=== PATIENT | female | born 1995 | race Caucasian/White ===

== ENCOUNTER 2020-01-16 21:35 | Emergency (ER) | payer OTHER ==
[2020-01-16 21:46] VITALS: BP 110/72; PULSE 83; TEMP 98.1; BMI 24.7
--- NOTE | 2020-01-16 22:46 | PDOC ---
Documentation entered by Geri Koroma SCRIBE, acting as scribe for Carlos Alberto Fregoso MD. Carlos Alberto Fregoso MD: This documentation has been prepared by the malissaibe, Geri Koroma SCRIBE, under my direction and personally reviewed by me in its entirety. I confirm that the documentation accurately reflects all work, treatment, procedures, and medical decision making performed by me. History of Present Illness - General Chief Complaint: Chest Pain Stated Complaint: CHEST PAIN History Source: Patient Exam Limitations: No Limitations - History of Present Illness Initial Comments: 01/16/20 21:58 The patient is a 25-year-old female who presents to the emergency department with chest tightness. The patient reports she finished a tennis match around 7:30 pm, following she had an acute onset of left-sided chest tightness. The patient reports she went home after the match, and she felt the pain worsened while lying down and while she was showering. The patient reports currently she feels chest discomfort at rest and a pleuritic chest pain to the left chest wall and reports pain to the neck and under her left armpit. Denies taking any medication for the pain. Denies prior similar pain. ALLERGIES: As per nursing notesPAST MEDICAL HISTORY: no significant history. Denies history of HTN. PAST SURGICAL HISTORY: no significant history FAMILY HISTORY: Denies family history of cardiac disease. SOCIAL HISTORY: Pt lives with family and is unemployed. +social use of alcohol. Denies the use of tobacco or recreational drugs. MEDICATIONS: reviewed PCP: Dr. Farris ([facility]). Review of system: General: No fevers or chills, no weakness, no weight loss HEENT: No change in vision. No sore throat. No ear pain CardioVascular: +left sided chest pain. No shortness of breath Respiratory:No cough, or wheezing. Gastrointestinal: no nausea, vomiting, diarrhea or constipation, No rectal bleeding Genitourinary: No dysuria, hematuria, or frequency Musculoskeletal: +pain under left armpit. +neck pain. No other joint or muscle pain or swelling Neurologic: No headache, vertigo, dizziness or loss of consciousness Psychiatric: nor depression Skin: No rashes or easy bruising Endocrine: no increased thirst or abnormal weight change Allergic: no skin or latex allergy All other systems reviewed and normal Physical exam: General: Well-nourished well-developed individual, no acute distress HEENT: Throat: Normal, tonsils normal, no erythema or exudate Neck: Supple, no meningeal signs, no lymphadenopathy Eyes :Pupils equal reactive and round, extraocular motion intact Chest: Nontender to palpation Cardiac: S1-S2 normal, regular rate and rhythm, no murmurs rubs or gallops Respiratory: Lungs clear to auscultation bilateral Extremities: Warm, dry, no cyanosis, clubbing, or edema Skin: No rashes Neuro: Alert and oriented x3, nonfocal exam, grossly intact, normal gait Psych: Normal mood and affect 01/16/20 22:44 Assessment and plan: This is a 25-year-old female who comes in complaining of left-sided chest pain after playing a vigorous game of tennis. Patient denies history of similar pain in the past. Patient otherwise had a normal exam and has no risk factors. Patient's EKG did show a RSR prime in V1 only most likely hereditary. However troponin was sent which was negative and patient discharged told to not resume physical activity until evaluated by a yarn winder. Past History - Medical History Allergies/Adverse Reactions: Allergies Allergy/AdvReac Type Severity Reaction Status Date / Time cat dander Allergy Mild Verified 01/16/20 21:37 *Physical Exam - Vital Signs Last Vital Signs Temp Pulse Resp BP Pulse Ox 98.1 F 83 18 110/72 99 01/16/20 21:40 01/16/20 21:40 01/16/20 21:40 01/16/20 21:40 01/16/20 21:40 ED Treatment Course - ADDITIONAL ORDERS Additional order review: Laboratory Results 01/16/20 22:20 Troponin I < 0.03 - Medications Given in the ED: ED Medications Discontinued Medications Generic Name Dose Route Start Last Admin Trade Name Freq PRN Reason Stop Dose Admin Ibuprofen 400 mg 01/16/20 23:04 01/16/20 23:06 Motrin - PO 01/16/20 23:05 400 mg ONCE ONE Administration Discharge - Discharge Information Problems reviewed: Yes Clinical Impression/Diagnosis: Atypical chest pain Condition: Stable Disposition: HOME - Admission No - Follow up/Referral Referrals: Michelle Farris MD [Primary Care Provider] - - Patient Discharge Instructions Patient Printed Discharge Instructions: DI for Atypical Chest Pain Additional Instructions: Tylenol or Motrin as needed for pain Make sure you follow-up with a yarn winder before resuming tennis or any strenuous physical activity. Return to the emergency department immediately with ANY new, persistent or worsening symptoms. Continue any medications as previously prescribed by your physician. You should follow up with your primary doctor as soon as possible regarding today's emergency department visit. . Please make sure your doctor reviews the results of your emergency evaluation. Thank you for coming to the Emergency Department today for your care. It was a pleasure to see you today. Please note that your evaluation is INCOMPLETE until you follow-up with your doctor. - Post Discharge Activity
[2020-01-16] MEDS ORDERED: IBUPROFEN 400 MG TABLET (FP) PO ONE ×2 (23:04→23:05)
--- NOTE | 2020-01-17 09:16 | EKG ---
Test Reason : Blood Pressure : / mmHG Vent. Rate : 062 BPM Atrial Rate : 062 BPM P-R Int : 142 ms QRS Dur : 090 ms QT Int : 394 ms P-R-T Axes : 060 085 052 degrees QTc Int : 399 ms NORMAL SINUS RHYTHM WITH SINUS ARRHYTHMIA RSR' OR QR PATTERN IN V1 SUGGESTS RIGHT VENTRICULAR CONDUCTION DELAY BORDERLINE ECG NO PREVIOUS ECGS AVAILABLE Confirmed by MD TANYA, XIAO ([id number]) on 01/17/2020 9:16:05 AM Referred By: DR YU Confirmed By:XIAO MARTÍNEZ MD
== END 2020-01-16 23:14 | disposition home or self-care (01) ==
LOC: SUPCPDRO 21:35 → FER 21:35
DX: R07.89 Other chest pain (principal)
CPT/HCPCS: 36415; 84484; 93005; 99284-25